=== PATIENT | female | born 1960 | race Caucasian/White ===

== ENCOUNTER 2017-11-15 18:08 | Inpatient (IN) | payer MEDICARE, MEDICAID ==
[2017-11-15] MEDS ORDERED: clonazePAM 0.5 MG TAB PO PRN (19:45)
[2017-11-15] MEDS ORDERED: Nitroglycerin 0.4 MG TAB (25 Tab Bottle) SL PRN (20:07)
[2017-11-15] MEDS: Atorvastatin Calcium 40 MG TAB PO SCH (20:08)
[2017-11-15] MEDS: busPIRone HCl 5 MG TAB PO SCH (20:09)
[2017-11-15] MEDS: Gabapentin 100 MG CAP PO SCH (20:09)
[2017-11-15] MEDS: TICAGRELOR 90 MG TABLET PO SCH (20:11)
[2017-11-15] MEDS: Metoprolol Tartrate 25 MG TAB PO SCH (20:11)
[2017-11-15] MEDS: guaiFENesin ER 600 MG TAB PO SCH (20:13)
--- NOTE | 2017-11-15 20:30 | RAD ---
ONE VIEW CHEST: 11/15/17 HISTORY: Pain. Fracture. COMPARISON: 10/01/17 FINDINGS: Limited evaluation due to portable technique. There does appear to be cardiomegaly. There are sternot aron wires. Left sided transvenous pacemaker appears to be unchanged. Mild pulmonary vascular prominen ce may be present. No obvious consolidation or masses. Chronic changes are suspected. No significant pleural fluid or pneumothorax. IMPRESSION: Limited evaluation due to portable technique and patient. there appears to be no evidence of congesti ve heart failure. There is evidence of cardiomegaly. POS: [facility]
[2017-11-16] MEDS: Mometasone/Formoterol 60 PUFF AER INH SCH ×2 (05:30→17:49)
[2017-11-16 06:02] LABS: ALT (SGPT) 12 U/L (8-55); AST (SGOT) 12 U/L (5-34); Albumin 3.1 g/dL (3.5-5.0); Alkaline Phosphatase 61 U/L (40-150); Anion Gap 11 mmol/L (10-20); BUN (Urea Nitrogen) 9 mg/dL (9.8-20.1); Bilirubin, Total 0.6 mg/dL (0.2-1.2); Calc. Creatinine Clearance 143 mL/min (70-130); Calcium 8.7 mg/dL (7.8-10.44); Carbon Dioxide 24 mmol/L (22-29); Chloride 109 mmol/L (98-107); Estimated GFR-MDRD 78; Globulin 2.3 g/dL (2.4-3.5); Glucose 103 mg/dL (70-105); Potassium 4.4 mmol/L (3.5-5.1); Protein, Total 5.4 g/dL (6.0-8.3); Sodium 140 mmol/L (136-145)
[2017-11-16 06:14] LABS: Anisocytosis SLIGHT = 6-15 cells (100X) (0-5/hpf); Band 12 % (5-11); Eosinophils 3 % (0-10); Hemoglobin 8.7 g/dL (12.0-16.0); Hypochromia MODERATE=16-30 cells (100X) (0-5/hpf); Lymphocytes 20 % (21-51); MDiff Complete? YES; Mean Corpuscular Volume 87.4 fl (81.0-99.0); Monocytes 8 % (0-10); Neutrophil 57 % (42-75); PLT Morphology Comment Appears Adequate; Platelet Count 191 thou/uL (130-400); Polychromasia SLIGHT = 2-3 cells (100X) (0-2/hpf); RBC Distribution Width 13.1 % (11.5-14.5)
[2017-11-16] MEDS: TICAGRELOR 90 MG TABLET PO SCH ×2 (08:29→20:41)
[2017-11-16] MEDS: busPIRone HCl 5 MG TAB PO SCH ×2 (08:29→20:40)
[2017-11-16] MEDS: guaiFENesin ER 600 MG TAB PO SCH ×2 (08:29→20:40)
[2017-11-16] MEDS: Gabapentin 100 MG CAP PO SCH ×2 (08:29→20:40)
[2017-11-16] MEDS: Metoprolol Tartrate 25 MG TAB PO SCH ×2 (08:30→20:42)
[2017-11-16] MEDS: Aspirin 81 mg Enteric Coated Tablet PO SCH (08:30)
[2017-11-16] MEDS: metFORMIN XR 500 MG TAB PO SCH (08:30)
[2017-11-16] MEDS ORDERED: BUPROPION PO SCH (09:00)
[2017-11-16] MEDS: Ondansetron ODT 4 MG TAB PO PRN (13:31)
[2017-11-16] MEDS: HYDROcodone/Acetaminophen 5/325 mg Tablet PO PRN ×2 (13:49→20:41)
--- NOTE | 2017-11-16 14:04 | HP ---
DATE OF ADMISSION: 11/15/2017 DATE OF EXAMINATION: 11/16/2017 CHIEF COMPLAINT: Significant deconditioning for physical therapy. BRIEF HISTORY: This is a very pleasant morbidly obese 56-year-old female with history of co ronary artery disease, has had multiple recent admissions to [facility] with atyp ical chest pain. With multiple recent admissions with chest pain and so, Dr. Malave at this time did a coronary angiogram, after which he recommended just medical management. Unfortunately, she did de velop some retroperitoneal hematoma after the procedure and had to have CT scans to monitor improveme nt. Her hemoglobin remained stable. She continued on her antiplatelet therapy and once she was deem ed stable for discharge from the cardiac standpoint, she was felt to be a candidate for inpatient [facility] therapy and so has been transferred here for [facility]. Here, she complains of feel ing tired and weak. She did complain of some cough yesterday, also chest x-ray was done, which is u nremarkable. She was started on some breathing treatments and Mucinex. No family at bedside. She states she is anorexic, she states she is nauseous at this time. Denies a ny chest pain or shortness of breath. Denies any fever or chills. PAST MEDICAL HISTORY: 1. Hypertension. 2. Dyslipidemia. 3. Diabetes mellitus, type 2. 4. History of cerebrovascular accident. 5. Coronary artery disease. 6. Recent retroperitoneal hematoma. 7. Depression and possible bipolar disorder. 8. Questionable asthma. PAST SURGICAL HISTORY: 1. Coronary artery bypass grafting. 2. Multiple cardiac catheterizations. 3. Coronary artery stent placement. 4. History of pacemaker placement. CURRENT MEDICATIONS: She has been transferred here on the following medications: 1. Wellbutrin 100 mg p.o. daily. 2. Aspirin 81 mg daily. 3. Lipitor 80 mg daily. 4. BuSpar 7.5 mg b.i.d. 5. Gabapentin 200 mg b.i.d. 6. Bronson 5/325 one tab q.6 hours p.r.n. 7. Isosorbide 30 mg b.i.d. 8. Metformin hydrochloride 500 mg daily. This is XR. 9. Metoprolol tartrate 12.5 mg b.i.d. 10. Dulera 2 puffs inhalation b.i.d. 11. Protonix 40 mg daily. 12. Seroquel 100 mg at nighttime. 13. Ranexa 1000 mg b.i.d. 14. Brilinta 90 mg b.i.d. ALLERGIES: No known drug allergies. FAMILY HISTORY: Positive for coronary artery disease in her mother. PSYCHOSOCIAL HISTORY: She has a [id number] history of smoking. She quit smoking about 40 years ag o. Denies any alcohol or IV drug abuse. REVIEW OF SYSTEMS: Cardiovascular System: Denies any chest pain at the present time. Denies any PN D or orthopnea. Respiratory System: Denies any chronic cough, expectoration, or pleuritic type ches t pain. She did have a cough last night, but that is improved with the breathing treatments. Gastro intestinal System: Complains of nausea today. Denies any hematemesis, melena, hematochezia. Genito urinary system: Denies any frequency, urgency, dysuria, or hematuria. Central Nervous System: Gene ralized weakness. HEENT: Denies any difficulty with speech, hearing, or swallowing. Skin: Denies any rash. Head/Neck: Denies any changes in vision or any presence changes to her lymph nodes. PHYSICAL EXAMINATION: GENERAL: A 56-year-old morbidly obese female who is resting comfortably in no apparent dist ress. She responds appropriately to questions. She is alert, awake, and oriented x3. She does have a flat affect. VITAL SIGNS: She is afebrile, heart rate is 78, respirations 18, oxygen saturation 92% on room air, blood pressure 101/51. HEENT: Normocephalic, atraumatic. Pupils equal and reactive to light and accommodation. NECK: No JVD, thyromegaly, cervical adenopathy, throat exudates, no carotid bruits. CARDIOVASCULAR SYSTEM: S1, S2 plus rate and rhythm regular. RESPIRATORY SYSTEM: Normal vesicular breath sounds heard in all lung velasco. Decreased air entry in the bases. ABDOMEN: Soft, obese, nontender. Bowel sounds heard in all quadrants. EXTREMITIES: Without cyanosis or clubbing. Trace edema. Peripheral pulses are palpable but decreas ed. CENTRAL NERVOUS SYSTEM: Generalized weakness. LABORATORY VALUES: Shows white count of 7, H&H is 8.7 and 27.1. Chemistry shows sodium of 140, pota ssium 4.4, BUN and creatinine is 9 and 0.76. AST and ALT are normal at 12 and 12. BNP slightly elev ated 233. Blood sugars are 106, 122, 91. IMPRESSION: 1. Coronary artery disease with episodes of atypical chest pain. 2. Pseudoaneurysm and retroperitoneal hematoma. 3. Hypertension. 4. Dyslipidemia. 5. Sick sinus syndrome, status post pacemaker placement. 6. Depression and anxiety with possible bipolar. 7. Morbid obesity. 8. History of cerebrovascular accident. 9. Possible asthma. PLAN: 1. Continue current medications. 2. Increase Wellbutrin. Change Wellbutrin 200 mg immediate release b.i.d. 3. May need to increase her BuSpar if mood does not improve. 4. Add Zofran for nausea. 5. Continue 1800-calorie heart-healthy ADA diet. 6. Accu-Cheks with sliding scale coverage. 7. Hold off on Lovenox, but start her on PlexiPulses. Given her recent retroperitoneal bleed. Cont inue aspirin and Brilinta. 8. Monitor her hemoglobin closely. 9. Physical therapy and occupational therapy evaluate and treat. 10. Continue breathing treatments. 11. Oxygen as needed. 12. She may have sleep apnea as well. She will need a workup on an outpatient basis. 13. Discussed with patient in detail. All questions answered. 14. Estimated length of stay 7-10 days.
[2017-11-16] MEDS: buPROPion HCl 100 MG TAB PO SCH (20:40)
[2017-11-16] MEDS: Atorvastatin Calcium 40 MG TAB PO SCH (20:42)
[2017-11-17 05:23] LABS: Anisocytosis MODERATE=16-30 cells (100X) (0-5/hpf); Band 6 % (5-11); Eosinophils 4 % (0-10); Hemoglobin 8.9 g/dL (12.0-16.0); Hypochromia SLIGHT = 6-15 cells (100X) (0-5/hpf); Lymphocytes 18 % (21-51); MDiff Complete? YES; Mean Corpuscular HGB CONC 33.3 g/dL (32.0-36.0); Mean Corpuscular Hemoglobin 28.9 pg (27.0-31.0); Mean Corpuscular Volume 86.6 fl (81.0-99.0); Mean Platelet Volume 10.6 fL (7.4-10.4); Monocytes 8 % (0-10); Myelocyte 1 % (0-0); Neutrophil 63 % (42-75); Nucleated RBC 0 % (0); Platelet Count 184 thou/uL (130-400); Polychromasia SLIGHT = 2-3 cells (100X) (0-2/hpf); RBC Distribution Width 13.1 % (11.5-14.5); Red Blood Cell (RBC) Count 3.07 mill/uL (4.20-5.40); White Blood Cell (WBC) Count 6.7 thou/uL (4.8-10.8)
[2017-11-17] MEDS: Mometasone/Formoterol 60 PUFF AER INH SCH ×2 (05:50→18:17)
[2017-11-17] MEDS: Gabapentin 100 MG CAP PO SCH ×2 (08:07→21:49)
[2017-11-17] MEDS: buPROPion HCl 100 MG TAB PO SCH ×2 (08:07→21:50)
[2017-11-17] MEDS: metFORMIN XR 500 MG TAB PO SCH (08:07)
[2017-11-17] MEDS: Metoprolol Tartrate 25 MG TAB PO SCH ×2 (08:07→21:49)
[2017-11-17] MEDS: Aspirin 81 mg Enteric Coated Tablet PO SCH (08:07)
[2017-11-17] MEDS: TICAGRELOR 90 MG TABLET PO SCH ×2 (08:07→21:50)
[2017-11-17] MEDS: guaiFENesin ER 600 MG TAB PO SCH ×2 (08:08→21:48)
[2017-11-17] MEDS: HYDROcodone/Acetaminophen 5/325 mg Tablet PO PRN ×3 (08:09→22:00)
[2017-11-17] MEDS: busPIRone HCl 5 MG TAB PO SCH ×2 (08:09→21:49)
--- NOTE | 2017-11-17 13:03 | PRG ---
DATE OF SERVICE: 11/17/2017 SUBJECTIVE: Ms. Gorman is doing better today. Denies any nausea, tolerating her diet. She also ambu lated with the help of therapy and walker. Denies any chest pain or shortness of breath. She is yao re of the increase in her Wellbutrin 200 mg b.i.d. No family at bedside. She denies any chest pain or shortness of breath. Denies any lightheadedness or dizziness. No hematemesis, melena, hematochez ia. OBJECTIVE: VITAL SIGNS: She is afebrile, heart rate is 77, respirations 18, oxygen saturation 93% on room air, blood pressure 121/60. CARDIOVASCULAR: S1, S2 plus. RESPIRATORY: Normal vesicular breath sounds. ABDOMEN: Soft, obese, nontender. Bowel sounds heard in all quadrants. EXTREMITIES: Without cyanosis or clubbing. CENTRAL NERVOUS SYSTEM: Generalized weakness. LABORATORY VALUES: White count of 6.7, hemoglobin and hematocrit is 8.9 and 26.6, it was 8.7 and 27. 1 yesterday. Blood sugars are 122, 91, 98, 98. IMPRESSION: 1. Diabetes mellitus type 2. 2. Coronary artery disease. 3. Resolving retroperitoneal hemorrhage. 4. Gastroesophageal reflux disease. 5. Deconditioning. 6. Obesity. 7. Depression. 8. Questionable asthma. PLAN: 1. Continue current medications. 2. A 1800 calorie Heart healthy ADA diet. 3. Accu-Cheks with sliding scale coverage. 4. Deep venous thrombosis and stress ulcer prophylaxis with PlexiPulses and she had recent retroperi toneal bleed. 5. Decubitus precautions. 6. Routine laboratory values. 7. Physical therapy. 8. Discussed with patient in detail. All questions answered.
[2017-11-17] MEDS ORDERED: Dextrose 5% in Water 1,000 ML IV PRN (13:32)
[2017-11-17] MEDS ORDERED: HumaLOG 300 UNITS/3 ML VIAL SC PRN ×2 (13:32)
[2017-11-17] MEDS ORDERED: Dextrose 50% Abboject 50 ML SYRINGE IVP PRN (13:32)
[2017-11-17] MEDS: Ondansetron ODT 4 MG TAB PO PRN ×2 (16:51→21:59)
[2017-11-17] MEDS: Atorvastatin Calcium 40 MG TAB PO SCH (21:48)
[2017-11-18] MEDS: HYDROcodone/Acetaminophen 5/325 mg Tablet PO PRN ×2 (06:12→14:17)
[2017-11-18] MEDS: Mometasone/Formoterol 60 PUFF AER INH SCH ×2 (06:12→18:30)
[2017-11-18] MEDS: Ondansetron ODT 4 MG TAB PO PRN (06:12)
[2017-11-18] MEDS: buPROPion HCl 100 MG TAB PO SCH ×2 (07:58→20:32)
[2017-11-18] MEDS: guaiFENesin ER 600 MG TAB PO SCH ×2 (07:58→20:31)
[2017-11-18] MEDS: TICAGRELOR 90 MG TABLET PO SCH ×2 (07:58→20:33)
[2017-11-18] MEDS: Metoprolol Tartrate 25 MG TAB PO SCH ×2 (07:59→20:31)
[2017-11-18] MEDS: busPIRone HCl 5 MG TAB PO SCH ×2 (07:59→20:32)
[2017-11-18] MEDS: metFORMIN XR 500 MG TAB PO SCH ×2 (08:00→08:01)
[2017-11-18] MEDS: Gabapentin 100 MG CAP PO SCH ×2 (08:00→20:33)
[2017-11-18] MEDS: Aspirin 81 mg Enteric Coated Tablet PO SCH (08:00)
[2017-11-18 14:25] VITALS: BMI 46.6
--- NOTE | 2017-11-18 14:27 | PRG ---
DATE OF SERVICE: 11/18/2017 SUBJECTIVE: Ms. oGrman is doing well. Denies any complaints, resting comfortably except for some lef t lower quadrant pain. She states that feels like tearing that is where she had her access for her c oronary angiography, and she developed a retroperitoneal bleed, it is more with movement. Her vital signs are stable. Her laboratory values are unremarkable. I advised her that it may be muscle spasm s from the bleeding and muscle irritation. We will keep a close eye on it. I advised I will start h er on some anti-inflammatory medicines to see if it helps. OBJECTIVE: VITAL SIGNS: She is afebrile, heart rate 72, respirations 21, oxygen saturation 91% on room air, blo od pressure 92/53. CARDIOVASCULAR: S1, S2 plus. RESPIRATORY: Normal vesicular breath sounds. ABDOMEN: Soft, nontender, bowel sounds heard in all quadrants. EXTREMITIES: Without cyanosis or clubbing. ABDOMEN: She does have some soreness in the left lower quadrant. LABORATORY VALUES: Blood sugars are 91, 98, 98, and 110. IMPRESSION: 1. Recent coronary angiography with a retroperitoneal hemorrhage and pseudoaneurysm formation. 2. History of coronary artery disease. 3. Diabetes mellitus type 2. 4. Hypertension. 5. Dyslipidemia. 6. Obesity. 7. History of cerebrovascular accident. 8. Depression. PLAN: 1. Recheck stat CBC now. 2. Start Meloxicam 7.5 b.i.d. 3. If her pain worsens or does not improve, she probably will need a CT scan to evaluate her retrope ritoneal hemorrhage. 4. Continue nutritional support with 1800 calorie heart healthy diet. 5. Accu-Cheks with sliding scale coverage. 6. Continue therapy as tolerated. 7. I discussed with the patient and nursing in detail. All questions answered. 8. Dr. Omega Bush is admissions consultant this weekend.
[2017-11-18 15:59] LABS: #Eosinphils 0.1 thou/uL (0.0-0.7); #Monocytes 1.1 thou/uL (0.11-0.59); #Neutrophils 4.8 thou/uL (1.40-6.50); %Basophils 0.6 % (0.0-1.0); %Lymphocytes 14.7 % (21.0-51.0); %Neutrophils 67.8 % (42.0-75.0); Hemoglobin 8.8 g/dL (12.0-16.0); Mean Corpuscular HGB CONC 32.6 g/dL (32.0-36.0); Mean Corpuscular Hemoglobin 28.6 pg (27.0-31.0); Mean Corpuscular Volume 87.6 fl (81.0-99.0); Platelet Count 214 thou/uL (130-400); RBC Distribution Width 13.4 % (11.5-14.5); Red Blood Cell (RBC) Count 3.07 mill/uL (4.20-5.40); White Blood Cell (WBC) Count 7.1 thou/uL (4.8-10.8)
[2017-11-18 16:01] LABS: Differential Comment SCANNED
[2017-11-18] MEDS: Atorvastatin Calcium 40 MG TAB PO SCH (20:30)
[2017-11-18] MEDS: Meloxicam 7.5 MG TAB PO SCH (20:33)
[2017-11-19 05:43] LABS: Band 3 % (5-11); Eosinophils 3 % (0-10); Hemoglobin 8.9 g/dL (12.0-16.0); Lymphocytes 14 % (21-51); MDiff Complete? YES; Mean Corpuscular HGB CONC 32.8 g/dL (32.0-36.0); Mean Corpuscular Hemoglobin 28.4 pg (27.0-31.0); Mean Corpuscular Volume 86.4 fl (81.0-99.0); Mean Platelet Volume 9.8 fL (7.4-10.4); Monocytes 11 % (0-10); Neutrophil 69 % (42-75); PLT Morphology Comment Appears Adequate; Platelet Count 221 thou/uL (130-400); RBC Distribution Width 13.5 % (11.5-14.5); RBC Morphology Normal; Red Blood Cell (RBC) Count 3.14 mill/uL (4.20-5.40); White Blood Cell (WBC) Count 7.1 thou/uL (4.8-10.8)
[2017-11-19] MEDS: Mometasone/Formoterol 60 PUFF AER INH SCH ×2 (05:43→18:16)
[2017-11-19] MEDS: TICAGRELOR 90 MG TABLET PO SCH ×2 (10:05→20:51)
[2017-11-19] MEDS: buPROPion HCl 100 MG TAB PO SCH ×2 (10:06→20:50)
[2017-11-19] MEDS: Metoprolol Tartrate 25 MG TAB PO SCH ×2 (10:06→20:51)
[2017-11-19] MEDS: Aspirin 81 mg Enteric Coated Tablet PO SCH (10:06)
[2017-11-19] MEDS: guaiFENesin ER 600 MG TAB PO SCH ×2 (10:06→20:51)
[2017-11-19] MEDS: busPIRone HCl 5 MG TAB PO SCH ×2 (10:07→20:49)
[2017-11-19] MEDS: Gabapentin 100 MG CAP PO SCH ×2 (10:07→20:51)
[2017-11-19] MEDS: Meloxicam 7.5 MG TAB PO SCH ×2 (10:08→20:51)
--- NOTE | 2017-11-19 10:15 | PRG ---
DATE OF SERVICE: 11/19/[address] Maris Murphy. SUBJECTIVE: The patient is a 56-year-old white female with a history of diabetes, hypertension, diff use coronary artery disease who has recently had an arteriogram with persistent diffuse CAD, but with complication of significant retroperitoneal hemorrhage who is admitted to swing bed for monitoring o f her hemorrhage which is stabilized and for increasing physical therapy as she is significantly weak . She had significant pain and spasm yesterday, but there was no evidence of recurrent bleeding with stable hemoglobin and today she feels much better after being started on muscle relaxer by Dr. Jessie Murphy. OBJECTIVE: VITAL SIGNS: Show temperature 99, pulse 75, respirations 18, O2 saturations 95% on room air, blood p ressure 125/60. LUNGS: Clear. CARDIAC EXAMINATION: Shows regular rhythm. No gallops or murmurs. ABDOMEN: Soft with some minimal left lower quadrant tenderness, but no masses. SKIN AND EXTREMITIES: Showed no edema, clubbing, cyanosis. ASSESSMENT: 1. Resolving pain from retroperitoneal hemorrhage, on meloxicam and baclofen. 2. Stable, but severe coronary artery disease with no angina at this time. 3. Type 2 diabetes, controlled to goal. 4. Hypertension, controlled to goal. PLAN: 1. We will continue Meloxicam and monitor closely. She was not started on baclofen and we will robina tor closely for recurrent spasms. 2. Continue to monitor closely for exacerbation of congestive heart failure.
[2017-11-19] MEDS: HYDROcodone/Acetaminophen 5/325 mg Tablet PO PRN ×2 (11:33→18:15)
[2017-11-19] MEDS: metFORMIN XR 500 MG TAB PO SCH (12:54)
[2017-11-19] MEDS: Atorvastatin Calcium 40 MG TAB PO SCH (20:50)
[2017-11-20] MEDS: HYDROcodone/Acetaminophen 5/325 mg Tablet PO PRN ×3 (02:55→19:07)
[2017-11-20] MEDS: Mometasone/Formoterol 60 PUFF AER INH SCH ×2 (05:36→17:47)
[2017-11-20] MEDS: metFORMIN XR 500 MG TAB PO SCH (09:26)
[2017-11-20] MEDS: Gabapentin 100 MG CAP PO SCH ×2 (09:27→21:02)
[2017-11-20] MEDS: Aspirin 81 mg Enteric Coated Tablet PO SCH (09:27)
[2017-11-20] MEDS: busPIRone HCl 5 MG TAB PO SCH ×2 (09:27→21:02)
[2017-11-20] MEDS: guaiFENesin ER 600 MG TAB PO SCH ×2 (09:28→21:02)
[2017-11-20] MEDS: Meloxicam 7.5 MG TAB PO SCH ×2 (09:28→21:01)
[2017-11-20] MEDS: Metoprolol Tartrate 25 MG TAB PO SCH ×2 (09:28→21:03)
[2017-11-20] MEDS: buPROPion HCl 100 MG TAB PO SCH ×2 (09:30→21:01)
[2017-11-20] MEDS: TICAGRELOR 90 MG TABLET PO SCH ×2 (09:30→21:02)
[2017-11-20] MEDS: Nystatin Cream 15 GM TUBE TOP SCH ×2 (15:54→20:57)
[2017-11-20] MEDS: Atorvastatin Calcium 40 MG TAB PO SCH (21:02)
--- NOTE | 2017-11-20 21:44 | PRG ---
DATE OF SERVICE: 11/20/2017 SUBJECTIVE: The patient feels better with chronic stable mild pain, no severity, but is not limited in her activities and is ready to do therapy tomorrow. Complaining mainly of insomnia today. OBJECTIVE: VITAL SIGNS: Shows temperature 98.4, pulse 73, respirations 22, O2 sats 96% on room air, blood press ure 140/65. ABDOMEN: Soft with minimal left lower quadrant tenderness. SKIN AND EXTREMITIES: Showed no edema. LUNGS: Clear. CARDIAC: Shows regular rhythm. ASSESSMENT: 1. Stable retroperitoneal hematoma. No evidence of worsening with chronic mild pain. 2. Stable hypertension. 3. Stable coronary artery disease. 4. Stable depression and bipolar disorder with main complaint of insomnia, despite multiple medicati ons. PLAN: Try temazepam 30 mg at night as needed. Continue other medications. Start physical therapy, occupational therapy tomorrow. Continue to monitor closely for worsening pain or signs of worsening retroperitoneal hematoma.
[2017-11-21] MEDS: Mometasone/Formoterol 60 PUFF AER INH SCH ×2 (05:29→17:50)
[2017-11-21] MEDS: metFORMIN XR 500 MG TAB PO SCH (08:36)
[2017-11-21] MEDS: Aspirin 81 mg Enteric Coated Tablet PO SCH (08:37)
[2017-11-21] MEDS: guaiFENesin ER 600 MG TAB PO SCH ×2 (08:37→20:57)
[2017-11-21] MEDS: buPROPion HCl 100 MG TAB PO SCH ×2 (08:37→20:56)
[2017-11-21] MEDS: Gabapentin 100 MG CAP PO SCH ×2 (08:38→20:57)
[2017-11-21] MEDS: Meloxicam 7.5 MG TAB PO SCH ×2 (08:38→20:57)
[2017-11-21] MEDS: TICAGRELOR 90 MG TABLET PO SCH ×2 (08:38→20:59)
[2017-11-21] MEDS: HYDROcodone/Acetaminophen 5/325 mg Tablet PO PRN ×2 (08:39→15:52)
[2017-11-21] MEDS: Metoprolol Tartrate 25 MG TAB PO SCH ×2 (08:40→20:58)
[2017-11-21] MEDS: busPIRone HCl 5 MG TAB PO SCH ×2 (08:41→20:56)
[2017-11-21] MEDS: Nystatin Cream 15 GM TUBE TOP SCH ×3 (08:42→20:58)
[2017-11-21] MEDS: Ondansetron ODT 4 MG TAB PO PRN (11:41)
--- NOTE | 2017-11-21 13:49 | PRG ---
DATE OF SERVICE: 11/21/2017 SUBJECTIVE: Ms. Gorman is doing well. Denies any complaints. She is up in her chair. She states th at she is ambulating well. She even went outside and did some steps. No chest pain or shortness of breath. Her abdominal pain is much improved. REVIEW OF SYSTEMS: Denies any chest pain, shortness of breath, PND, orthopnea, pedal edema. Denies any nausea, vomiting, or diarrhea. Denies any lightheadedness or dizziness and improving strength. OBJECTIVE: VITAL SIGNS: She is afebrile, heart rate is 77, respirations 19, oxygen saturation 95% on room air, blood pressure 137/59. CARDIOVASCULAR: S1, S2 plus. RESPIRATORY: Normal vesicular breath sounds. ABDOMEN: Soft, obese, nontender, bowel sounds heard in all quadrants. EXTREMITIES: Without cyanosis or clubbing. CENTRAL NERVOUS SYSTEM: Improving deconditioning. LABORATORY VALUES: Blood sugars are 91, 92, 95, 100, 92, and 101. IMPRESSION: 1. Coronary artery disease without angina. 2. Diabetes mellitus type 2, excellent control. 3. Resolving retroperitoneal hemorrhage. 4. Stable anemia due to acute blood loss. 5. Gastroesophageal reflux disease, stable. 6. Improving deconditioning. 7. Obesity. PLAN: 1. Continue current medications. 2. 1800 calorie Heart healthy ADA diet. 3. Accu-Cheks with sliding scale coverage. 4. Deep venous thrombosis and stress ulcer prophylaxis. 5. Decubitus precautions. 6. Monitor hemoglobin. 7. Physical therapy. 8. Discharge planning.
[2017-11-21] MEDS: Atorvastatin Calcium 40 MG TAB PO SCH (20:56)
[2017-11-21] MEDS: Temazepam 15 MG CAP PO PRN (23:08)
[2017-11-22] MEDS: Mometasone/Formoterol 60 PUFF AER INH SCH ×2 (05:46→17:39)
[2017-11-22] MEDS: Ondansetron ODT 4 MG TAB PO PRN (07:33)
[2017-11-22] MEDS: buPROPion HCl 100 MG TAB PO SCH ×2 (08:30→20:36)
[2017-11-22] MEDS: Meloxicam 7.5 MG TAB PO SCH ×2 (08:30→20:37)
[2017-11-22] MEDS: guaiFENesin ER 600 MG TAB PO SCH ×2 (08:31→20:37)
[2017-11-22] MEDS: Gabapentin 100 MG CAP PO SCH ×2 (08:31→20:37)
[2017-11-22] MEDS: metFORMIN XR 500 MG TAB PO SCH (08:31)
[2017-11-22] MEDS: TICAGRELOR 90 MG TABLET PO SCH ×2 (08:31→20:38)
[2017-11-22] MEDS: Aspirin 81 mg Enteric Coated Tablet PO SCH (08:31)
[2017-11-22] MEDS: Metoprolol Tartrate 25 MG TAB PO SCH ×2 (08:32→20:37)
[2017-11-22] MEDS: busPIRone HCl 5 MG TAB PO SCH ×2 (08:33→20:36)
[2017-11-22] MEDS: HYDROcodone/Acetaminophen 5/325 mg Tablet PO PRN (08:34)
[2017-11-22] MEDS: Nystatin Cream 15 GM TUBE TOP SCH ×3 (08:35→20:35)
[2017-11-22] MEDS ORDERED: Acetaminophen 500 MG TAB PO PRN (13:40)
--- NOTE | 2017-11-22 14:44 | PRG ---
DATE OF SERVICE: 11/22/2017 SUBJECTIVE: Ms. Gorman is doing well. Denies any complaints, resting comfortably. Discussed with jolly sheppard, not eating very much, because of nausea and this is the regular food, but she is eating a lot of ice cream and biscuits and cookies. Arm blood sugars are stable. From discussing with the patien t, it seems like she is doing well enough to go home, but I will discussed with Therapy. They have t heir weekly meeting today. OBJECTIVE: VITAL SIGNS: She is afebrile, heart rate 69, respirations 16, oxygen saturation 93% on room air, blo od pressure 113/60. CARDIOVASCULAR SYSTEM: S1 and S2 plus. RESPIRATORY SYSTEM: Normal vesicular breath sounds. ABDOMEN: Soft, nontender, bowel sounds heard in all quadrants. EXTREMITIES: Without cyanosis or clubbing. Peripheral pulses are palpable. IMPRESSION: 1. Atypical chest pain. No further issues. 2. Retroperitoneal hemorrhage, slowly improving. 3. Deconditioning, slow improving. 4. Diabetes mellitus, type 2, well controlled. 5. Anemia due to acute blood loss, stable. 6. Gastroesophageal reflux disease. 7. Depression. 8. Coronary artery disease. 9. Diabetes mellitus, type 2. PLAN: 1. Continue physical therapy. 2. An 1800-calorie heart healthy ADA diet. 3. DVT and stress ulcer prophylaxis. 4. Decubitus precautions. 5. Nutritional support. 6. Physical therapy. 7. Discharge planning.
[2017-11-22] MEDS: Atorvastatin Calcium 40 MG TAB PO SCH (20:36)
[2017-11-22] MEDS: Temazepam 15 MG CAP PO PRN (20:38)
[2017-11-23 05:22] LABS: #Basophils 0.1 thou/uL (0.0-0.2); #Eosinphils 0.2 thou/uL (0.0-0.7); #Lymphocytes 1.2 thou/uL (1.20-3.40); #Monocytes 0.9 thou/uL (0.11-0.59); #Neutrophils 4.3 thou/uL (1.40-6.50); %Eosinophils 2.5 % (0.0-10.0); %Lymphocytes 18.8 % (21.0-51.0); %Monocytes 13.1 % (0.0-10.0); %Neutrophils 64.6 % (42.0-75.0); Hemoglobin 9.2 g/dL (12.0-16.0); Mean Corpuscular HGB CONC 31.9 g/dL (32.0-36.0); Mean Corpuscular Volume 87.7 fl (81.0-99.0); Mean Platelet Volume 9.8 fL (7.4-10.4); Platelet Count 296 thou/uL (130-400); RBC Distribution Width 13.7 % (11.5-14.5); Red Blood Cell (RBC) Count 3.27 mill/uL (4.20-5.40); White Blood Cell (WBC) Count 6.6 thou/uL (4.8-10.8)
[2017-11-23 05:38] LABS: Anion Gap 12 mmol/L (10-20); BUN (Urea Nitrogen) 13 mg/dL (9.8-20.1); Calc. Creatinine Clearance 164 mL/min (70-130); Calcium 8.8 mg/dL (7.8-10.44); Carbon Dioxide 23 mmol/L (22-29); Chloride 108 mmol/L (98-107); Estimated GFR-MDRD Greater than 90; Glucose 115 mg/dL (70-105); Potassium 3.4 mmol/L (3.5-5.1); Sodium 140 mmol/L (136-145)
[2017-11-23] MEDS: Mometasone/Formoterol 60 PUFF AER INH SCH (05:54)
[2017-11-23 07:09] VITALS: TEMP 98.6
[2017-11-23] MEDS: metFORMIN XR 500 MG TAB PO SCH (08:36)
[2017-11-23] MEDS: Aspirin 81 mg Enteric Coated Tablet PO SCH (08:36)
[2017-11-23] MEDS: buPROPion HCl 100 MG TAB PO SCH (08:37)
[2017-11-23] MEDS: Gabapentin 100 MG CAP PO SCH (08:37)
[2017-11-23] MEDS: busPIRone HCl 5 MG TAB PO SCH (08:37)
[2017-11-23] MEDS: guaiFENesin ER 600 MG TAB PO SCH (08:38)
[2017-11-23] MEDS: Nystatin Cream 15 GM TUBE TOP SCH (08:38)
[2017-11-23] MEDS: Meloxicam 7.5 MG TAB PO SCH (08:38)
[2017-11-23] MEDS: Metoprolol Tartrate 25 MG TAB PO SCH (08:38)
[2017-11-23] MEDS: TICAGRELOR 90 MG TABLET PO SCH (08:39)
[2017-11-23 09:24] VITALS: BP 133/63
[2017-11-23] MEDS ORDERED: Potassium Chloride 20 MEQ TAB PO SCH (13:30)
--- NOTE | 2017-11-23 13:48 | DIS ---
DATE OF DISCHARGE: 11/23/2017 HOSPITAL COURSE: Ms. Gorman is doing well. Denies any complaints, resting comfortably, tolerating he r therapy. She has been cleared for discharge by therapy and nursing. She states that she does not need any prescriptions other than one for Meloxicam. She is going to schedule an appointment with a new PCP as her prior PCP is in the [facility] and they do not accept her secondary insurance. Denies any other concerns or questions. She states that she does not need any DME nor does she want any therapy. OBJECTIVE: VITAL SIGNS: She is afebrile, heart rate 67, respirations 19, oxygen saturation 97% on room air, blo od pressure is 133/63. CARDIOVASCULAR SYSTEM: S1 and S2 plus. RESPIRATORY SYSTEM: Normal vesicular breath sounds. ABDOMEN: Soft, obese, nontender, bowel sounds heard in all quadrants. EXTREMITIES: Without cyanosis or clubbing. Peripheral pulses are palpable. CENTRAL NERVOUS SYSTEM: Much improved deconditioning. LABORATORY VALUES: White count is 6.6, H and H is 9.2 and 28.7, improving hemoglobin. Sodium 140, p otassium 3.4, BUN and creatinine are 13 and 0.66. Blood sugars are 115, Accu-Chek shows readings of 94, 137, 96, and 116. IMPRESSION: 1. Status post retroperitoneal hemorrhage after undergoing cardiac catheterization for atypical ches t pain with history of coronary artery disease. Hemoglobin is improving. 2. Abdominal pain, much improved. 3. Coronary artery disease without angina. 4. Diabetes mellitus, type 2. 5. Hypertension. 6. Dyslipidemia. 7. Obesity. 8. Improved deconditioning. PLAN: 1. Replace potassium 20 mEq p.o. x1. 2. 1800-calorie heart healthy ADA diet. 3. DVT and stress ulcer prophylaxis. 4. Decubitus precautions. 5. Outpatient follow up with primary care physician. 6. Continue discharge medication list, which is below. 7. Activity: As tolerated. 8. She is to call us with any questions or concerns. DISCHARGE MEDICATIONS: 1. Tylenol 500 mg q.6 hours p.r.n. 2. Ecotrin 81 mg daily. 3. Lipitor 80 mg daily. 4. Wellbutrin 100 mg b.i.d. 5. BuSpar 7.5 mg b.i.d. 6. Gabapentin 200 mg b.i.d. 7. Mucinex 600 mg b.i.d. p.r.n. 8. Imdur 30 mg p.o. b.i.d. 9. Meloxicam 7.5 mg p.o. b.i.d. 10. Metformin XR 500 mg daily. 11. Lopressor 12.5 mg p.o. b.i.d. 12. Dulera inhaler two puffs inhalation b.i.d. She is to gargle after use. 13. Protonix 40 mg daily. 14. Seroquel 100 mg at bedtime. 15. Ranexa 1000 mg b.i.d. 16. Brilinta 90 mg p.o. b.i.d. She states the only prescription she needs is Meloxicam and I will send it to her pharmacy, which is [facility] on [address] For full details, please see chart. Total time spent on this discharge, 35 minutes.
== END 2017-11-23 16:15 | disposition home or self-care (01) | DRG 948 ==
LOC: NAV ACUTE 18:08
PROVIDERS: ADMIT Internal Medicine; ATTEND Internal Medicine
DX: R53.1 Weakness (principal); K91.841 Postprocedural hemorrhage of a digestive system organ or structure following other procedure; D62 Acute posthemorrhagic anemia; I10 Essential (primary) hypertension; R26.9 Unspecified abnormalities of gait and mobility; E78.5 Hyperlipidemia, unspecified; E11.9 Type 2 diabetes mellitus without complications; F31.9 Bipolar disorder, unspecified; E66.9 Obesity, unspecified; K21.9 Gastro-esophageal reflux disease without esophagitis; I25.10 Atherosclerotic heart disease of native coronary artery without angina pectoris; Y84.0 Cardiac catheterization as the cause of abnormal reaction of the patient, or of later complication, without mention of misadventure at the time of the procedure; Z86.73 Personal history of transient ischemic attack (TIA), and cerebral infarction without residual deficits; Z79.82 Long term (current) use of aspirin; Z79.84 Long term (current) use of oral hypoglycemic drugs; Z79.899 Other long term (current) drug therapy; Z95.1 Presence of aortocoronary bypass graft; Z95.5 Presence of coronary angioplasty implant and graft
CPT/HCPCS: 36415; 36416; 71045; 80048; 80053; 83880; 85025; G8978-GP-CK; G8979-GP-CI; J7620; Q0162